=== PATIENT | male | born 2000 | race African-American/Black ===

== ENCOUNTER 2019-01-23 22:13 | Emergency (ER) | payer SELFPAY | END 2019-01-23 23:35 | disposition home or self-care (01) | LOC: EDH 22:13 → EDBD 22:13 → EDH 23:35 | DX: F41.9 Anxiety disorder, unspecified (principal); R07.89 Other chest pain; J45.909 Unspecified asthma, uncomplicated; Z88.2 Allergy status to sulfonamides; Z87.891 Personal history of nicotine dependence | CPT/HCPCS: 71046; 93005 ==